=== PATIENT | female | born 1980 | race American Indian/Alaskan Native ===

== ENCOUNTER 2017-11-22 08:23 | Emergency (ER) | payer MEDICAID ==
[2017-11-22 08:56] VITALS: BP 135/83
--- NOTE | 2017-11-22 11:17 | Emergency Department Report ---
ED General Adult HPI - General Chief complaint: Extremity Problem,Nontraumatic Stated complaint: BILATERAL LEG PAIN Time Seen by Provider: 11/22/17 11:02 Source: patient Mode of arrival: Ambulatory Limitations: No Limitations - History of Present Illness Initial comments: This is a 37-year-old female who was previously unknown to this provider, she has a new primary care doctor. She reports that she is not . She reports a past medical history of idiopathic pulmonary embolus, many years ago, and reports that she is not currently on systemic anticoagulation. She presents to the ER with painful bite like blisters on her bilateral lower extremities which has been intermittently present for the past 2 weeks. She had a rash 2 weeks ago which has since resolved. There is one bite on the left medial thigh, and there is one bite on the right anterior tibial region, and one bite/lesion on the left anterior tibial region. She denies headache, neck pain, chest pain, abdominal pain, shortness of breath, sore throat. The rash does not radiate anywhere, does not have exacerbating or relieving factors. She denies vaginal irritation and rectal irritation and pharyngeal irritation. -: Gradual, week(s) Location: left, right, lower extremity Radiation: non-radiation Quality: aching Consistency: constant Improves with: rest Worsens with: medication Associated Symptoms: rash. denies: confusion, chest pain, cough, diaphoresis, fever/chills, headaches, loss of appetite, malaise, nausea/vomiting, shortness of breath, syncope, weakness - Related Data Previous Rx's Medication Instructions Recorded Last Taken Type Acetaminophen [Tylenol Arthritis] 650 mg PO Q6HR PRN #30 tablet.er 11/22/17 Unknown Rx Doxycycline [Vibramycin CAP] 100 mg PO Q12HR #13 capsule 11/22/17 Unknown Rx Ibuprofen [Motrin] 600 mg PO Q8H PRN #30 tablet 11/22/17 Unknown Rx Permethrin 5% [Acticin 5% CREAM] 1 applicatio TP ONCE #2 tube 11/22/17 Unknown Rx Allergies Allergy/AdvReac Type Severity Reaction Status Date / Time morphine Allergy Itching Verified 11/22/17 08:57 Penicillins Allergy Hives Verified 11/22/17 08:57 ED Review of Systems ROS: Stated complaint: BILATERAL LEG PAIN Other details as noted in HPI ED Past Medical Hx - Past Medical History Additional medical history: PE - Medications Home Medications: Home Medications Medication Instructions Recorded Confirmed Last Taken Type Acetaminophen [Tylenol Arthritis] 650 mg PO Q6HR PRN #30 tablet.er 11/22/17 Unknown Rx Doxycycline [Vibramycin CAP] 100 mg PO Q12HR #13 capsule 11/22/17 Unknown Rx Ibuprofen [Motrin] 600 mg PO Q8H PRN #30 tablet 11/22/17 Unknown Rx Permethrin 5% [Acticin 5% CREAM] 1 applicatio TP ONCE #2 tube 11/22/17 Unknown Rx ED Physical Exam - General Limitations: No Limitations General appearance: alert, in no apparent distress, obese - Head Head exam: Present: atraumatic, normocephalic - Eye Eye exam: Present: normal appearance, EOMI - ENT ENT exam: Present: normal exam (there is no desquamation or abnormal pharyngeal tissue noted.), normal orophraynx, mucous membranes moist, normal external ear exam, other (speaking in full sentences, there is no stridor or dysphonia.) - Neck Neck exam: Present: normal inspection, full ROM. Absent: tenderness, meningismus - Respiratory Respiratory exam: Present: normal lung sounds bilaterally. Absent: respiratory distress - Cardiovascular Cardiovascular Exam: Present: regular rate, normal rhythm, normal heart sounds. Absent: systolic murmur, diastolic murmur, rubs, gallop - GI/Abdominal GI/Abdominal exam: Present: soft, normal bowel sounds. Absent: distended, tenderness, guarding, rebound, rigid, pulsatile mass - Extremities Exam Extremities exam: Present: full ROM, tenderness (on the left medial thigh, there is no ulcerated lesion 2 x 2 centimeters. Escorted by nurse March during this examination. On the distal anterior tibial region, there is a central pustule with surrounding erythema that is indurated. It is not fluctuant. 3 x 3 cm. Compartment soft. Left anterior tibial region, mid tibia, 2 x 2 centimeter area of induration with central pustule. Compartment soft. No pain with passive range of motion. 2+ pulses noted in the bilateral upper and lower extremities), normal capillary refill. Absent: pedal edema, joint swelling, calf tenderness - Back Exam Back exam: Present: normal inspection, full ROM. Absent: paraspinal tenderness , vertebral tenderness - Neurological Exam Neurological exam: Present: alert, oriented X3, CN II-XII intact, normal gait, other (Extraocular movements intact. Tongue midline. No facial droop. Facial sensation intact to light touch in the V1, V2, V3 distribution bilaterally. 5 and 5 strength in 4 extremities.. Sensation is intact to light touch in 4 extremities.). Absent: motor sensory deficit - Psychiatric Psychiatric exam: Present: normal affect, normal mood - Skin Skin exam: Present: warm, dry, erythema ED Course Vital Signs 11/22/17 08:50 Temperature 98.4 F Pulse Rate 90 Respiratory 16 Rate Blood Pressure 135/83 O2 Sat by Pulse 98 Oximetry ED Medical Decision Making - Lab Data Vital Signs 11/22/17 08:50 Temperature 98.4 F Pulse Rate 90 Respiratory 16 Rate Blood Pressure 135/83 O2 Sat by Pulse 98 Oximetry [facility] KIRILL LEAVITT Female : 1980 [facility] [id number] 11/22/17 10:32 - Radiology Dept. Note by DEYA ESCOBAR [facility] Num: [id number] : 1980 Patient Age: 37 VASCULAR LAB.PRELIMINARY REPORT.RLE VENOUS DUPLEX DONE.NO EVIDENCE OF DVT/SVT IN VESSELS VISUALIZED.ENLARGED LYMPH NODES SEEN IN BOTH GROINS. Initialized on 11/22/17 10:32 - END OF NOTE - Medical Decision Making Differential diagnosis, including but not limited to: Cellulitis, nonspecific insect bite Assessment and plan: 37-year-old female with reported history 2 weeks of bite like jones on her lower extremities. DVT study negative. Based on history and physical, have no suspicion for DVT. Bite jones have mild superinfection with induration but no fluctuance, no indication for incision and drainage at this time. Patient will be started on permethrin, doxycycline, Motrin, acetaminophen , she is instructed to have her apartment evaluated by an hole digger operator for possible insect. Also instructed to wash clothing and sheets in hot water and soap, and to purchase a mattress cover Critical care attestation.: If time is entered above; I have spent that time in minutes in the direct care of this critically ill patient, excluding procedure time. ED Disposition Clinical Impression: Bite Disposition: DC-01 TO HOME OR SELFCARE Is pt being admited?: No Does the pt Need Aspirin: No Condition: Stable Instructions: Insect Bite or Sting (ED) Additional Instructions: As we discussed, skin lesions appear to be consistent with bite. Uncertain what is causing the bite. Use the medications as needed/directed, and apply warm compresses to bite lesions as often as as needed. I recommend having apartment evaluated by an hole digger operator for possible insect infestation. Wash all clothing and bed linens in hot ordered with soap, and purchase a mattress cover. Follow-up with the primary care doctor within the next 2-3 weeks. Return to the ER right away with fevers, chills, lethargy, irritability, projectile vomiting, change in mental status, inability to tolerate liquid feeds. At this point in time, skin lesions do not require incision and drainage , however it is possible that they may form abscesses, which at that time with require incision and drainage. Therefore, it is very important to follow-up as directed. Referrals: ELIESER OROPEZA MD [Other] - 3-5 Days
[2017-11-22] MEDS ORDERED: VIBRAMYCIN PO ONE (11:23)
[2017-11-22] MEDS ORDERED: TYLENOL PO ONE (11:23)
[2017-11-22] MEDS ORDERED: MOTRIN PO ONE (11:23)
--- NOTE | 2017-11-27 09:02 | Vascular Lab Report ---
Right Lower Extremity Venous Duplex Study: Reason for Exam: Pain and swelling of the right lower extremity. Comments on the Right: All veins visualized are freely compressible without evidence of internal echogenicity. Flow is spontaneous and phasic throughout. No evidence of acute or chronic thrombus is seen in any of the vessels visualized. Right inguinal adenopathy is noted. Comments on the Left: A limited duplex study was done of the proximal veins of the left lower extremity. All veins visualized are freely compressible without evidence of internal echogenicity. Flow is spontaneous and phasic throughout. No evidence of acute or chronic thrombus is seen in any of the vessels visualized. Left inguinal adenopathy is noted. Impression: No evidence of acute or chronic deep venous thrombosis in the right lower extremity.
== END 2017-11-22 11:51 | disposition home or self-care (01) ==
LOC: ED 08:23
DX: S80.862A Insect bite (nonvenomous), left lower leg, initial encounter (principal); S80.861A Insect bite (nonvenomous), right lower leg, initial encounter; W57.XXXA Bitten or stung by nonvenomous insect and other nonvenomous arthropods, initial encounter; Y93.89 Activity, other specified; Y92.89 Other specified places as the place of occurrence of the external cause; Y99.8 Other external cause status

== ENCOUNTER 2018-01-28 10:47 | Emergency (ER) | payer MEDICAID ==
--- NOTE | 2018-01-28 12:10 | Emergency Department Report ---
ED ENT HPI - General Chief complaint: Sore Throat Stated complaint: EAR/THROAT PAIN Time Seen by Provider: 01/28/18 12:01 Source: patient Mode of arrival: Ambulatory Limitations: No Limitations - History of Present Illness Initial comments: pt presents for sore throat x 4 days hx of same 2 months ago, pt states noc fever 102 at home no fever at this time, pain with swallowing MD complaint: sore throat Onset/Timin -: days(s) Location: throat Severity: moderate Severity scale (0 -10): 3 Quality: burning, aching Consistency: intermittent Improves with: none Worsens with: swallowing Context-Epistaxis: other (none) Context- Ear: recent illness Associated Symptoms: fever, sore throat - Related Data Previous Rx's Medication Instructions Recorded Last Taken Type Acetaminophen [Tylenol Arthritis] 650 mg PO Q6HR PRN #30 tablet.er 11/22/17 Unknown Rx Doxycycline [Vibramycin CAP] 100 mg PO Q12HR #13 capsule 11/22/17 Unknown Rx Ibuprofen [Motrin] 600 mg PO Q8H PRN #30 tablet 11/22/17 Unknown Rx Permethrin 5% [Acticin 5% CREAM] 1 applicatio TP ONCE #2 tube 11/22/17 Unknown Rx Clindamycin [Clindamycin CAP] 300 mg PO Q8H #30 cap 01/28/18 Unknown Rx Dexamethasone [Decadron] 4 mg PO Q12H #6 tablet 01/28/18 Unknown Rx Ibuprofen 800 mg PO TID PRN #30 tablet 01/28/18 Unknown Rx diphenhydrAMINE [Benadryl CAP] 25 mg PO Q8HR PRN #30 capsule 01/28/18 Unknown Rx Allergies Allergy/AdvReac Type Severity Reaction Status Date / Time morphine Allergy Itching Verified 11/22/17 08:57 Penicillins Allergy Hives Verified 11/22/17 08:57 ED Dental HPI - General Chief complaint: Sore Throat Stated complaint: EAR/THROAT PAIN Time Seen by Provider: 01/28/18 12:01 Source: patient Mode of arrival: Ambulatory Limitations: No Limitations - Related Data Previous Rx's Medication Instructions Recorded Last Taken Type Acetaminophen [Tylenol Arthritis] 650 mg PO Q6HR PRN #30 tablet.er 11/22/17 Unknown Rx Doxycycline [Vibramycin CAP] 100 mg PO Q12HR #13 capsule 11/22/17 Unknown Rx Ibuprofen [Motrin] 600 mg PO Q8H PRN #30 tablet 11/22/17 Unknown Rx Permethrin 5% [Acticin 5% CREAM] 1 applicatio TP ONCE #2 tube 11/22/17 Unknown Rx Clindamycin [Clindamycin CAP] 300 mg PO Q8H #30 cap 01/28/18 Unknown Rx Dexamethasone [Decadron] 4 mg PO Q12H #6 tablet 01/28/18 Unknown Rx Ibuprofen 800 mg PO TID PRN #30 tablet 01/28/18 Unknown Rx diphenhydrAMINE [Benadryl CAP] 25 mg PO Q8HR PRN #30 capsule 01/28/18 Unknown Rx Allergies Allergy/AdvReac Type Severity Reaction Status Date / Time morphine Allergy Itching Verified 11/22/17 08:57 Penicillins Allergy Hives Verified 11/22/17 08:57 ED Review of Systems ROS: Stated complaint: EAR/THROAT PAIN Other details as noted in HPI Constitutional: fever Eyes: denies: eye pain, eye discharge, vision change ENT: throat pain. denies: ear pain Respiratory: denies: cough, shortness of breath, wheezing Cardiovascular: denies: chest pain, palpitations Endocrine: no symptoms reported Gastrointestinal: as per HPI Genitourinary: denies: urgency, dysuria, discharge Musculoskeletal: denies: back pain, joint swelling, arthralgia Skin: denies: rash, lesions Neurological: denies: headache, weakness, paresthesias Psychiatric: denies: anxiety, depression Hematological/Lymphatic: denies: easy bleeding, easy bruising ED Past Medical Hx - Past Medical History Previous Medical History?: No Additional medical history: PE - Surgical History Past Surgical History?: Yes Hx Cholecystectomy: Yes - Social History Smoking Status: Never Smoker Substance Use Type: None - Medications Home Medications: Home Medications Medication Instructions Recorded Confirmed Last Taken Type Acetaminophen [Tylenol Arthritis] 650 mg PO Q6HR PRN #30 tablet.er 11/22/17 Unknown Rx Doxycycline [Vibramycin CAP] 100 mg PO Q12HR #13 capsule 11/22/17 Unknown Rx Ibuprofen [Motrin] 600 mg PO Q8H PRN #30 tablet 11/22/17 Unknown Rx Permethrin 5% [Acticin 5% CREAM] 1 applicatio TP ONCE #2 tube 11/22/17 Unknown Rx Clindamycin [Clindamycin CAP] 300 mg PO Q8H #30 cap 01/28/18 Unknown Rx Dexamethasone [Decadron] 4 mg PO Q12H #6 tablet 01/28/18 Unknown Rx Ibuprofen 800 mg PO TID PRN #30 tablet 01/28/18 Unknown Rx diphenhydrAMINE [Benadryl CAP] 25 mg PO Q8HR PRN #30 capsule 01/28/18 Unknown Rx ED Physical Exam - General Limitations: No Limitations General appearance: alert, in no apparent distress - Head Head exam: Present: atraumatic, normocephalic - Eye Eye exam: Present: PERRL, EOMI Pupils: Present: normal accommodation - ENT ENT exam: Present: mucous membranes moist, TM's normal bilaterally, normal external ear exam - Expanded ENT Exam Expanded Mouth exam: Absent: trismus Teeth exam: Present: normal inspection Throat exam: Positive: tonsillar erythema, tonsillomegaly, tonsillar exudate. Negative: R peritonsillar mass, L peritonsillar mass - Neck Neck exam: Present: normal inspection, full ROM. Absent: tenderness, lymphadenopathy, thyromegaly - Respiratory Respiratory exam: Present: normal lung sounds bilaterally. Absent: respiratory distress, wheezes, stridor - Cardiovascular Cardiovascular Exam: Present: regular rate, normal rhythm. Absent: systolic murmur, diastolic murmur, rubs, gallop - GI/Abdominal GI/Abdominal exam: Present: soft, normal bowel sounds - Extremities Exam Extremities exam: Present: normal inspection - Back Exam Back exam: Present: normal inspection - Neurological Exam Neurological exam: Present: alert, oriented X3 - Psychiatric Psychiatric exam: Present: normal affect, normal mood - Skin Skin exam: Present: warm, dry, intact, normal color. Absent: rash ED Course Vital Signs 01/28/18 11:27 Temperature 99.2 F Pulse Rate 76 Respiratory 16 Rate Blood Pressure 143/89 O2 Sat by Pulse 96 Oximetry ED Medical Decision Making - Medical Decision Making this is phayrngitis no stridor uvula midline, lungs clear plan pt is pcn allergic , this is second occurance will tx with clindamyinc, decaron, benadryl ibuprofen follow with with [facility] 2[facility]3 days pt verbalized agreement and understanding of same. Critical care attestation.: If time is entered above; I have spent that time in minutes in the direct care of this critically ill patient, excluding procedure time. ED Disposition Clinical Impression: Pharyngitis Qualifiers: Pharyngitis/tonsillitis etiology: unspecified etiology Qualified Code(s): J02.9 - Acute pharyngitis, unspecified Disposition: TO HOME OR SELFCARE Is pt being admited?: No Does the pt Need Aspirin: No Condition: Good Instructions: Pharyngitis (ED) Prescriptions: Clindamycin [Clindamycin CAP] 300 mg PO Q8H #30 cap Dexamethasone [Decadron] 4 mg PO Q12H #6 tablet diphenhydrAMINE [Benadryl CAP] 25 mg PO Q8HR PRN #30 capsule PRN Reason: rash itching Ibuprofen 800 mg PO TID PRN #30 tablet PRN Reason: pain and fever Referrals: [facility] [Outside] - 3-5 Days Forms: Work/School Release Form(ED) Time of Disposition: 12:18
[2018-01-28 12:54] VITALS: BP 148/92
== END 2018-01-28 12:33 | disposition home or self-care (01) ==
LOC: ED 10:47
DX: J02.9 Acute pharyngitis, unspecified (principal)
CPT/HCPCS: 99282